=== PATIENT | male | born 1945 | race Caucasian/White ===

== ENCOUNTER 2017-05-08 13:24 | Emergency (ER) | payer OTHER ==
[~2017-05-08] VITALS: Ht 167.6 cm; Wt 65.0 kg
[2017-05-08] MEDS ORDERED: SODIUM CHLORIDE 0.9% 1,000 ML IV ONE (13:51)
[2017-05-08] MEDS ORDERED: ONDANSETRON HCL 4MG/2ML VIAL IV STA (13:51)
[2017-05-08] MEDS ORDERED: KETOROLAC 30MG/ML VIAL IV STA (13:51)
[2017-05-08 14:00] VITALS: BP 128/87
[2017-05-08 14:26] LABS: EOSINOPHILS % 5.6 % (0.0-5.0); HEMATOCRIT. 42.9 % (42.0-52.0); HEMOGLOBIN. 14.5 g/dL (14.0-18.0); LYMPHOCYTES % 31.9 % (20.0-50.0); MEAN CORPUSCULAR HEMOGLOBIN 34.3 pg (28.0-32.0); MEAN CORPUSCULAR VOLUME 101.5 fL (80.0-94.0); MONOCYTES % 5.3 % (2.0-8.0); NEUTROPHILS % 55.2 % (40.0-76.0); PLATELET 202 x1000/uL (130-400); RED BLOOD CELL COUNT 4.22 mill/uL (4.7-6.1); RED CELL DISTRIBUTION WIDTH 14.2 % (11.6-14.6)
[2017-05-08 14:33] LABS: CHLORIDE 105 mEq/L (98-107)
[2017-05-08 14:42] LABS: PROTHROMBIN TIME 10.2 sec (9.4-11.6)
[2017-05-08 14:43] LABS: CARBON DIOXIDE 23 mEq/L (21-32)
[2017-05-08 14:59] LABS: ETHANOL BLOOD 345 mg/dL
[2017-05-08] MEDS ORDERED: SODIUM CHLORIDE 0.9% 1,000 ML IV SCH ×2 (15:39→19:23)
[2017-05-08] MEDS ORDERED: METRONIDAZOLE 500 MG PREMIX 100 ML IV ONE (15:45)
[2017-05-08] MEDS ORDERED: CEFTRIAXONE 1 G PREMIX 50 ML IV ONE (15:45)
[2017-05-08] MEDS ORDERED: IPRATROPIUM/ALBUTEROL 0.5-3(2.5)MG/3ML NEB INH PRN (19:30)
[2017-05-08] MEDS ORDERED: CEFTRIAXONE 1 G PREMIX 50 ML IV SCH (19:30)
[2017-05-08] MEDS ORDERED: MVI, ADULT NO.1 10 ML, FOLIC ACID 1 MG, THIAMINE HCL 100 MG in SODIUM CHLORIDE 0.9% 1,0... IV SCH ×4 (19:30)
[2017-05-08] MEDS ORDERED: CLONIDINE 0.1MG TABLET PO PRN (19:30)
[2017-05-08] MEDS ORDERED: MAGNESIUM/ALUMINUM HYDROXIDE/SIMETHICONE 30ML UDC PO PRN (19:30)
[2017-05-08] MEDS ORDERED: MORPHINE SULFATE 2 MG/ML CPJ (NOT FOR IM USE) IV PRN (19:30)
[2017-05-08] MEDS ORDERED: ACETAMINOPHEN 325MG TABLET PO PRN (19:30)
[2017-05-08] MEDS ORDERED: DOCUSATE SODIUM 100MG CAPSULE PO PRN (19:30)
[2017-05-08] MEDS ORDERED: ONDANSETRON HCL 4MG/2ML VIAL IV PRN (19:30)
[2017-05-08] MEDS ORDERED: CHLORDIAZEPOXIDE 25MG CAPSULE PO SCH (22:00)
[2017-05-08] MEDS ORDERED: METRONIDAZOLE 500 MG PREMIX 100 ML IV SCH (22:00)
[2017-05-09] MEDS ORDERED: MULTIVITAMINS,THER W-MINERALS TABLET PO SCH (09:00)
[2017-05-09] MEDS ORDERED: THIAMINE HCL 100MG TABLET PO SCH (09:00)
[2017-05-09] MEDS ORDERED: FOLIC ACID 1MG TABLET PO SCH (09:00)
== END 2017-05-08 17:10 | disposition left against medical advice (07) ==
LOC: ER 13:44 → CANRESERV 20:09 → ENRESERV 20:09 → CMPBEDREQ 05-09 02:05
DX: K57.32 Diverticulitis of large intestine without perforation or abscess without bleeding (principal)
CPT/HCPCS: 36415; 74176; 80053; 83690; 85025; 85610; 87040; 93005; 96361; 96365; 99285; G0482; J3490; J7030; Z7610

== ENCOUNTER 2017-05-16 14:31 | Emergency (ER) | payer OTHER ==
[~2017-05-16] VITALS: Ht 167.6 cm; Wt 73.0 kg
[2017-05-16 14:40] VITALS: BP 140/81
== END 2017-05-16 18:56 | disposition left against medical advice (07) ==
LOC: ER 14:50
DX: R10.9 Unspecified abdominal pain (principal)
CPT/HCPCS: 99283